=== PATIENT | male | born 1950 | race Hispanic/Latino ===

== ENCOUNTER 2017-02-24 10:13 | Outpatient (CLI) | payer BC ==
--- NOTE | 2017-02-24 11:51 | XRay Report ---
XRAY RIGHT KNEE FOUR VIEWS: 02/24/17 10:13:00 CLINICAL: Knee pain. FINDINGS: Mild osteopenia. 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 The lateral joint space is normal. There is no patella. No fracture or dislocation. No joint effusion.Vascular calcifications in otherwise normal soft tissues. 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 No other significant findings.
== END 2017-02-24 10:14 | disposition home or self-care (01) ==
LOC: SPVIMAG 10:13
PROVIDERS: ATTEND Orthopaedic Surgery
DX: M17.11 Unilateral primary osteoarthritis, right knee (principal); M85.861 Other specified disorders of bone density and structure, right lower leg; M25.861 Other specified joint disorders, right knee